=== PATIENT | male | born 1955 | race Caucasian/White ===

== ENCOUNTER 2024-05-16 06:36 | Inpatient (IN) | payer MEDICARE ==
[2024-05-16] VITALS (11 sets, daily range): BP systolic 103–150; BP diastolic 53–88; PULSE 48–71; TEMP 97.3–97.9
[~2024-05-16] VITALS: Ht 188 cm; Wt 100.5 kg
[~2024-05-16 06:36] MED LIST: Acetaminophen 500 MG TAB PO SCH; Celecoxib 200 MG CAP PO SCH; Gabapentin 100 MG CAP PO SCH; LR 1,000 ML IV SCH
[2024-05-16] MEDS ORDERED: COREG 25MG25 MG/TAB PO (07:24)
[2024-05-16] MEDS ORDERED: JARDIANCE25 PO (07:24)
[2024-05-16] MEDS ORDERED: HYGROTON 2525 MG/TAB PO (07:25)
[2024-05-16] MEDS ORDERED: COPAXONE40 MG/ML SQ (07:25)
[2024-05-16] MEDS ORDERED: NORVASC 10MG10 MG PO (07:25)
[2024-05-16] MEDS ORDERED: MICARDIS80 MG PO (07:26)
[2024-05-16] MEDS ORDERED: ALDACTONE 25MG25 M1 PO (07:27)
[2024-05-16] MEDS ORDERED: LANTUS SOLOS100 U/ML SQ (07:28)
[2024-05-16] MEDS ORDERED: Midazolam 2 MG/2 ML VIAL ONE (07:34)
[2024-05-16] MEDS ORDERED: fentaNYL 50 MCG/ML 5 ML VIAL ONE (07:34)
[2024-05-16] MEDS ORDERED: Rocuronium 50 MG/5 ML Multi-Dose VIAL ONE (07:34)
[2024-05-16] MEDS ORDERED: dexAMETHasone 10 MG/ML VIAL ONE (07:35)
[2024-05-16] MEDS ORDERED: Ondansetron 4 MG/2 ML VIAL ONE (07:35)
[2024-05-16] MEDS ORDERED: NS 10 ML IV ONE (07:35)
[2024-05-16] MEDS ORDERED: Lidocaine PF 2% (20 MG/ML) 5 ML VIAL ONE (07:47)
[2024-05-16 08:00] LABS: HEMATOCRIT 43.4 % (42.0-52.0); HEMOGLOBIN 15.7 g/dl (13.5-18.0); MEAN CELL VOLUME 83 fl (80.0-100.0); MEAN CORPUSCULAR HEMOGLOBIN 30 pg (27-31); MEAN CORPUSCULAR HGB CONC 36 g/dl (33.0-37.0); MEAN PLATELET VOLUME 9.7 fl (7.4-10.4); PLATELET COUNT 256 K/mm3 (130-400); RED BLOOD COUNT 5.25 M/mm3 (4.20-5.60); REDCELL DISTRIBUTION WIDTH-CV 11.9 % (11.5-14.5)
[2024-05-16] MEDS ORDERED: Carvedilol 25 MG TAB PO SCH (08:00)
--- NOTE | 2024-05-16 08:06 | NUR ---
Pt admitted to [facility] bay 8 at 0640. Consent signed. Admission assessments complete. Medications, allergies, and pharmacy complete. Questions answered. EKG completed, on chart. 18G IV inserted on second attempt into LFA, lab specimen obtained, LR infusing without difficulty. JUAN Hernandez speak with patient and , anesthesia consent signed. Pt to PACU for blocks at 0800 via cart. Blood glucose obtained. Glasses and belongings in PACU.
[2024-05-16 08:17] LABS: CALCIUM 8.8 mg/dL (8.4-10.2); CREATININE, serum 0.97 mg/dL (0.72-1.25); POTASSIUM 3.6 mEq/L (3.5-4.5)
[2024-05-16] MEDS ORDERED: Topical Skin Adhesive 1 EACH (1 ML) TOP ONE ×2 (08:25)
[2024-05-16] MEDS ORDERED: Ondansetron 4 MG/2 ML VIAL IV PRN ×2 (08:30→09:15)
[2024-05-16] MEDS ORDERED: oxyCODONE 5 MG TAB PO PRN (08:30)
[2024-05-16] MEDS ORDERED: Morphine 4 MG/ML VIAL IV PRN (08:30)
[2024-05-16] MEDS ORDERED: Naloxone 0.4 MG/ML VIAL IV PRN (08:30)
[2024-05-16] MEDS ORDERED: ePHEDrine 50 MG/ML VIAL ONE (08:32)
[2024-05-16] MEDS ORDERED: Chlorthalidone 25 MG TAB PO SCH (09:00)
[2024-05-16] MEDS ORDERED: Empagliflozin 25 MG TAB PO SCH (09:00)
[2024-05-16] MEDS ORDERED: Telmisartan 80 MG **** subs to Losartan 100 MG PO SCH (09:00)
[2024-05-16] MEDS ORDERED: LR 1,000 ML IV SCH (09:00)
[2024-05-16] MEDS ORDERED: amLODIPine 10 MG TAB PO SCH (09:00)
[2024-05-16] MEDS ORDERED: droPERidol 2.5 MG/ML 2 ML VIAL IV PRN (09:15)
[2024-05-16] MEDS ORDERED: Meperidine 50 MG/ML 1 ML VIAL IV PRN (09:15)
[2024-05-16] MEDS ORDERED: fentaNYL 50 MCG/ML 1 ML SYRINGE/VIAL [PACU/SDC ONLY] IV PRN ×2 (09:15)
[2024-05-16] MEDS ORDERED: hydrALAZINE 20 MG/ML 1 ML VIAL IV PRN ×2 (09:15→16:45)
[2024-05-16] MEDS ORDERED: HYDROmorphone 1 MG/1 ML SYRINGE [PACU/SDC ONLY] IV PRN (09:15)
--- NOTE | 2024-05-16 12:00 | NUR ---
Pt. to the floor from PACU. Pt. is A&XO3, assessment WNL. IV site to lt. forearm patent. Abd. lap sites x6, GABI with glue. Pt. reports pain at a 3 on pain scale and denies need for pain meds. Pt. denies further needs, call light within reach.
[2024-05-16] MEDS ORDERED: Acetaminophen 500 MG TAB PO SCH (14:00)
[2024-05-16] MEDS ORDERED: Dextrose 50% Water 25 GM/50 ML SYRINGE IV PRN (16:45)
[2024-05-16] MEDS ORDERED: Glucagon 1 MG VIAL IM PRN (16:45)
[2024-05-16] MEDS ORDERED: Dextrose (Glucose) 15 GM (4 x 3.75 GM) Chewable TABLET PACK PO PRN (16:45)
[2024-05-16] MEDS ORDERED: Insulin Lispro (HumaLOG) SQ SCH (17:00)
[2024-05-16] MEDS ORDERED: Insulin Glargine-ygfn (Lantus) SQ SCH ×2 (21:00)
--- NOTE | 2024-05-16 21:00 | NUR ---
pt is a&ox4 resting in bed. vss. pt reports increased pain in abdomen. pt denies nausea and is tolerating diet. wilson to dd w clear yellow urine output. x5 lap and 1 midline incisions are cdi. scds to ble. INT to left forearm patent. pt denies needs at this time. call light in reach.
[2024-05-17 00:41] VITALS: BP_SYST 139
[2024-05-17 04:19] VITALS: BP 147/77; PULSE 64; TEMP 97.6
[2024-05-17 04:38] VITALS: BP_SYST 147
--- NOTE | 2024-05-17 06:00 | NUR ---
wilson catheter removed this morning without difficulty, clear pale yellow urine output in bag. pt denies pain. encouraged patient to increase fluid intake.
[2024-05-17 07:44] VITALS: BP 159/82; PULSE 66; TEMP 97.4
[2024-05-17 07:44] LABS: CREATININE, serum 1.64 mg/dL (0.72-1.25); POTASSIUM 3.7 mEq/L (3.5-4.5)
[2024-05-17 07:55] LABS: BASO % 0.1 % (0.0-2.0); EOS % 0.1 % (0.0-4.0); GRAN # 11.5 K/mm3 (1.4-6.5); GRAN % 83.1 % (42.2-75.2); HEMATOCRIT 41.6 % (42.0-52.0); HEMOGLOBIN 15.1 g/dl (13.5-18.0); LYMPH # 1.2 K/mm3 (1.2-3.4); LYMPH % 8.9 % (20.0-51.0); MEAN CELL VOLUME 84 fl (80.0-100.0); MEAN CORPUSCULAR HEMOGLOBIN 30 pg (27-31); MEAN CORPUSCULAR HGB CONC 36 g/dl (33.0-37.0); MEAN PLATELET VOLUME 9.9 fl (7.4-10.4); MONO % 7.4 % (1.7-9.3); PLATELET COUNT 249 K/mm3 (130-400); RED BLOOD COUNT 4.98 M/mm3 (4.20-5.60); REDCELL DISTRIBUTION WIDTH-CV 12.2 % (11.5-14.5)
--- NOTE | 2024-05-17 08:00 | NUR ---
Pt. sitting up in chair. Pt. is A&OX3, assessment complete. INT to lt. forearm. Pt. voiding w/o complications. Pt. denies pain or other needs, call light within reach.
[2024-05-17 09:00] VITALS: BP_SYST 159
[2024-05-17] MEDS ORDERED: Spironolactone 12.5 MG TAB PO SCH (09:00)
[2024-05-17] MEDS ORDERED: Patient's Own Medication Item PO SCH (09:00)
--- NOTE | 2024-05-17 09:45 | NUR ---
Pt. is ready for discharge. INT discontinued from lt. forearm. Reviewed and gave discharge packet to the pt. Pt. and voice understanding. Pt. dressed and escorted out.
--- NOTE | 2024-05-17 11:50 | NUR ---
SW met with patient to complete initial assessment for discharge planning. Patient verified that he lives in [place] with his [place] ([phone]). Patient denies having completed a DPOA and declined to complete one at this time. Patient sees Erika Trinidad APRN as his PCP and uses [facility] pharmacy in [place]. Patient denies having any DME. Patient reports to be active and independent and plans to return home without needs. Discharge plan: Home
== END 2024-05-17 09:48 | disposition home or self-care (01) | DRG 661 ==
LOC: SDCO 06:36 → SURG 11:50 → SDCO 05-17 07:57 → SURG 05-17 07:57
PROVIDERS: Nurse Anesthetist, Certified Registered; ADMIT Urology
PROC: 0TT14ZZ Resection of Left Kidney, Percutaneous Endoscopic Approach (ICD-10-PCS; principal; 2024-05-17)
PROC: 8E0W4CZ Robotic Assisted Procedure of Trunk Region, Percutaneous Endoscopic Approach (ICD-10-PCS; 2024-05-17)
DX: N28.89 Other specified disorders of kidney and ureter (principal); E11.9 Type 2 diabetes mellitus without complications; I10 Essential (primary) hypertension; G35 Multiple sclerosis; Z98.49 Cataract extraction status, unspecified eye; Z79.4 Long term (current) use of insulin; Z79.899 Other long term (current) drug therapy; Z88.8 Allergy status to other drugs, medicaments and biological substances; Z90.5 Acquired absence of kidney; Z82.49 Family history of ischemic heart disease and other diseases of the circulatory system; Z83.3 Family history of diabetes mellitus
CPT/HCPCS: OP; A4314; A9284; J0690; J1100; J1815; J2250; J2405; J2704; J2795; J3010; J7120